=== PATIENT | female | born 1985 | race Caucasian/White ===

== ENCOUNTER 2025-05-09 09:38 | Outpatient (CLI) | payer BC, OTHER, SELFPAY ==
--- NOTE | 2025-05-09 09:45 | CRLHL7_ITS ---
For Patients: As a result of the Cures Act, medical imaging exams and procedure reports are released immediately into your electronic medical record. You may view this report before your referring provider. If you have questions, please contact your health care provider. BILATERAL BREAST ULTRASOUND CLINICAL HISTORY: LEFT breast lump. COMPARISON: Mammogram 12/09/2019. Ultrasound 12/09/2019 and 02/21/2020. TECHNIQUE: Digital BILATERAL mammogram in 4 projections with computer-aided detection. Tomosynthesis was used in this interpretation. Real-time ultrasound imaging of BILATERAL breast with imaging documentation. Scanning was performed by both the technologist and the radiologist. BREAST COMPOSITION: The breasts are heterogeneously dense, which may obscure small masses. FINDINGS: 3D CC/MLO bilateral mammogram images submitted. Nodular densities are present within the RIGHT breast at 12 o`clock and 10 o`clock without architectural distortion. Normal fibroglandular tissue LEFT breast. No adenopathy. No suspicious calcifications within either breast. Targeted LEFT breast ultrasound performed in the area of concern at 4 o`clock 10 cm from the nipple. Normal intramammary lymph nodes are present which measure 7 x 4 x 8 mm and 7 x 3 x 7 mm. Normal central fatty seema. Normal internal color flow. Targeted RIGHT breast ultrasound performed at 10 o`clock 8 cm from the nipple. In this location, there is a simple circumscribed anechoic cyst which measures 1.5 x 0.5 x 1.3 cm. Targeted RIGHT breast ultrasound performed at 12 o`clock 3 cm from the nipple. In this location, there is a cluster of cysts measuring in total 1.3 x 0.6 x 1.6 cm. IMPRESSION: Benign cysts RIGHT breast. Benign intramammary lymph nodes LEFT breast. No evidence of malignancy. RECOMMENDATIONS: Routine screening mammography. A lay language report of this examination will be provided to the patient. BI-RADS Category 2. Benign. Dictated by Wayne Lima MD @ 05/09/2025 10:51:53 AM/CRL:dior KOCH/Dictated by: Wayne Lima MD @ 05/09/2025 10:51:00 AM /Dictated by: Wayne Lima MD @ 05/09/2025 10:51:00 AM (Electronically Signed)
--- NOTE | 2025-05-09 10:15 | CRLHL7_ITS ---
For Patients: As a result of the Cures Act, medical imaging exams and procedure reports are released immediately into your electronic medical record. You may view this report before your referring provider. If you have questions, please contact your health care provider. PLEASE SEE BILATERAL DIAGNOSTIC MAMMOGRAM OF SAME DAY. CRL:dior KOCH/Dictated by: Wayne Lima MD @ 05/09/2025 10:49:00 AM (Electronically Signed)
== END 2025-05-09 09:39 | disposition home or self-care (01) ==
LOC: MAMMO 09:38
PROVIDERS: Visit Provider Physician Assistant
DX: N63.20 Unspecified lump in the left breast, unspecified quadrant (principal); N60.02 Solitary cyst of left breast; R92.333 Mammographic heterogeneous density, bilateral breasts
CPT/HCPCS: 76642; 77066; G0279